=== PATIENT | female | born 1930 | race Caucasian/White ===

== ENCOUNTER 2017-11-09 10:07 | Inpatient (IN) | payer OTHER ==
[~2017-11-09] VITALS: Ht 162.6 cm; Wt 72.6 kg
[2017-11-09] MEDS ORDERED: LOSART PO (10:31)
[2017-11-09] MEDS ORDERED: ZOLOFT PO (10:32)
[2017-11-09] MEDS ORDERED: LEVO-T25 MCG PO (10:32)
[2017-11-09] MEDS ORDERED: ALPHAGAN P5 M2 OP (10:33)
[2017-11-09] MEDS ORDERED: ASA81 MG PO (10:33)
[2017-11-09] MEDS ORDERED: OMEPRAZOLE10 MG PO (10:33)
[2017-11-15] MEDS ORDERED: ALLEGRA ALLERGY60 MG PO (12:46)
[2017-11-15] MEDS ORDERED: LOSARTAN POTASS50 MG PO (12:46)
[2017-11-15] MEDS ORDERED: PROTONIX40 MG PO (12:47)
[2017-11-15] MEDS ORDERED: ASA-EC81 MG PO (12:48)
[2017-11-15] MEDS ORDERED: NASACORT16.9 ML (12:48)
[2017-11-16] MEDS ORDERED: PERCOCET 5-3251 EACH PO (16:12)
[2017-11-16] MEDS ORDERED: XARELTO10 MG PO (16:12)
[2017-11-16] MEDS ORDERED: DUI500 PO (16:12)
== END 2017-11-16 18:44 | DRG 470 ==
LOC: O/R 11-14 05:35 → SURG 11-14 05:35 → SURH 11-14 12:30 → SURG 11-14 14:00 → SURH 11-14 14:45 → SURG 11-16 18:44
PROVIDERS: Orthopaedic Surgery
PROC: 0MNP0ZZ Release Left Knee Bursa and Ligament, Open Approach (ICD-10-PCS; 2017-11-14)
PROC: 0SRD0J9 Replacement of Left Knee Joint with Synthetic Substitute, Cemented, Open Approach (ICD-10-PCS; principal; 2017-11-14 12:30)
DX: M17.12 Unilateral primary osteoarthritis, left knee (principal); D62 Acute posthemorrhagic anemia; I10 Essential (primary) hypertension; E03.8 Other specified hypothyroidism; M81.0 Age-related osteoporosis without current pathological fracture; H40.89 Other specified glaucoma